=== PATIENT | male | born 1990 | race Caucasian/White ===

== ENCOUNTER 2019-04-05 17:24 | Inpatient (IN) | payer OTHER ==
[~2019-04-05] VITALS: Ht 177.8 cm; Wt 81.7 kg
--- NOTE | ~2019-04-05 | EKG ---
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
--- NOTE | ~2019-04-05 | EKG ---
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.[place] : 1990 Requested By: AZUL MILLER Order Number: [id number] Reading MD: Umair Remy MD Measurements Intervals [place] Rate: 145 P: 85 NH: 137 QRS: 80 QRSD: 93 T: 13 QT: 273 QTc: 424 Interpretive Statements Sinus tachycardia Multiple ventricular premature complexes Aberrant complex Probable left atrial enlargement Baseline wander in lead(s) II,III,aVF,V1,V3,V4 Compared to ECG 04/05/2019 18:44:40 Ventricular premature complex(es) now present Aberrant conduction of supraventricular beat(s) now present Sinus rhythm no longer present Electronically Signed On 04-08-2019 9:33:54 PDT by Umair Remy MD CM:EKGRPT:ELECTROCARDIOGRAM REPORT [id number] AZUL NICE DRAFT REPORT AZUL MILLER
[2019-04-05 17:25] VITALS: BP 134/83
[2019-04-05] MEDS ORDERED: ZANTAC 150150 MG PO (17:28)
[2019-04-05] MEDS ORDERED: AMBIEN10 M1 PO (17:28)
[2019-04-05 17:50] LABS: BILIRUBIN NEGATIVE (NEGATIVE); BLOOD NEGATIVE (NEGATIVE); CLARITY CLEAR (CLEAR); COLOR YELLOW (YELLOW); GLUCOSE NEGATIVE (NEGATIVE); KETONE NEGATIVE (NEGATIVE); LEUKO ESTERASE TRACE (NEGATIVE); NITRITE NEGATIVE (NEGATIVE); UROBILINOGEN 0.2 E.U./dl (0.2-1.0)
[2019-04-05 18:02] LABS: RBC 0-2 rbc/hpf (0-2)
[2019-04-05 18:03] LABS: BACTERIA TRACE; EPITHELIAL CELLS 0-2
[2019-04-05 18:08] LABS: URINE AMPHETAMINES < 1000 (1000ng/ml); URINE BARBITURATES < 200 (200ng/ml); URINE BENZODIAZEPINES > 200 (200ng/ml); URINE CANNABINOIDS (THC) > 50 (50ng/ml); URINE COCAINE < 300 (300ng/ml); URINE METHADONE < 300 (300ng/ml); URINE OPIATES < 300 (300ng/ml)
[2019-04-05 18:09] LABS: URINE PHENCYCLIDINE < 25 (25ng/ml)
[2019-04-05 18:49] LABS: BASO # 0.1 10*3/uL (0.0-0.1); BASO % 0.4 % (0.0-1.0); EOS # 0.2 10*3/uL (0.0-0.4); EOS % 1.8 % (1.0-4.0); HEMATOCRIT 48.4 % (42.0-52.0); HEMOGLOBIN 15.9 g/dl (14.0-18.0); LYMPH # 2.9 10*3/uL (1.3-4.4); LYMPH % 21.9 % (27.0-41.0); MEAN CELL VOLUME 91.7 fl (80.0-94.0); MEAN CORPUSCULAR HGB 30.1 pg (27.0-31.0); MEAN CORPUSCULAR HGB CONC 32.9 g/dl (33.0-37.0); MEAN PLATELET VOLUME 10.7 fl (9.6-12.3); MONO # 0.8 10*3/uL (0.1-1.0); MONO % 5.9 % (3.0-9.0); NEUT # 9.3 10*3/uL (2.3-7.9); NEUT % 69.7 % (47.0-73.0); PLATELET COUNT AUTOMATED 278 10*3/uL (130-400); RED BLOOD COUNT 5.28 10*6/uL (4.50-5.90); RED CELL DISTRI WIDTH 13.3 % (0-14.5); WHITE BLOOD COUNT 13.3 10*3/uL (4.8-10.8)
[2019-04-05 19:12] LABS: ALBUMIN 4.5 gm/dl (3.1-4.5); ALKALINE PHOSPHATASE 87 U/L (45-117); BUN 10 mg/dl (7-24); CHLORIDE 109 mmol/L (98-107); POTASSIUM 3.8 mmol/L (3.5-5.1); SGOT/AST 11 IU/L (3-35); SGPT/ALT 22 U/L (12-78); SODIUM 142 mmol/L (136-145); TOTAL PROTEIN 8.2 gm/dL (6.4-8.2)
[2019-04-05 19:50] VITALS: BP 130/66; BP 130/78
--- NOTE | 2019-04-05 19:50 | NUR ---
Time: 1947 A year old admitted to 5E under services of REENA MAYA DO. Pt. arrived via bed from ER. Chief complaint: SUBSTANCE ABUSE. PATIENT ORIENTED TO THE FLOOR 5E. PATIENT ALERT AND ORIENTED X3 ADVANCE DIRECTIVE, BELONGINGS CHECKLIST, AND HEALTHY LIFESTYLES FORMS REVIEWED AND COMPLETED. CALL LIGHT SYSTEM DEMONSTRATED. PATIENT PLACED ON MONITOR. SHANEL LUNA
--- NOTE | 2019-04-05 20:19 | NUR ---
DR. GILL NOTIFIED THAT PATIENT IS ON THE FLOOR AND MED REC IS UP-TO-DATE.
[2019-04-06] VITALS: BP 114/62
--- NOTE | 2019-04-06 04:56 | NUR ---
PATIENT GIVEN BENTYL, VISTARIL, IBUPROFEN, ZOFRAN, AND ROBAXIN PER PT REQUEST FOR ANXIETY, LEG CRAMPS AND ABDOMINAL CRAMPS.
[2019-04-06 08:00] VITALS: BP 110/76
--- NOTE | 2019-04-06 10:36 | NUR ---
PATIENT MEETS [facility]. PATIENT WANTS TO FOLLOW UP WITH [facility] FOR [facility]IDENT[facility]REAT[facility]. [facility] STA[facility] WILL SEND REFERRAL OFF TO FACILITY AND FOLLOW BACK UP WITH PATIENT. [facility] STAFF WILL SET TRANSPORATION THROUGH PATIENT'S INSURANCE IF NEEDED. DOTTIE BANEGAS B.A. INTAKE COORDIANTOR
[2019-04-06 12:00] VITALS: BP 120/71
[2019-04-06 16:00] VITALS: BP 112/76
[2019-04-06 20:00] VITALS: BP 128/72
[2019-04-07] VITALS: BP 104/54
[2019-04-07 08:00] VITALS: BP 111/78
[2019-04-07 12:00] VITALS: BP 109/62
[2019-04-07 16:00] VITALS: BP 136/89
--- NOTE | 2019-04-07 17:07 | NUR ---
NOTIFIED DR. MILLER OF PT'S PULSE.
[2019-04-07 20:00] VITALS: BP 111/58
--- NOTE | 2019-04-07 22:13 | NUR ---
PATIENT REPORTS ANXIETY TO THIS RN D/T NOT BEING ABLE TO SLEEP. PATIENT SHOWS NO SIGNS OR SYMPTOMS OF DISTRESS. RESPIRATIONS EASY NONLABORED. VOICES NO FURTHER CONCERNS. PRN VISTARIL GIVEN AT THIS TIME. WILL REASSESS.
[2019-04-08] VITALS: BP 107/67
--- NOTE | 2019-04-08 | NUR ---
NOTIFIED DR. PATEL THAT PATIENT REFUSED 0000 VITALS
--- NOTE | 2019-04-08 07:30 | NUR ---
TOOK OVER CARE OF PT AT THIS TIME. PT SITTING UP IN BED, ALERT ORIENTED AND PLEASANT MOOD WITH NO COMPLAINTS OTHER THAN SOME ANXIETY. SCHEDULED ATIVAN GIVEN AND PRN MEDICATIONS EXPLAINED TO PATIENT. ALL OTHER SCHEDULED MEDS GIVEN WELL. ASSESSMENT COMPLETE WITH NO FURTHER S/S OF DISTRESS. RESPIRATIONS EASY AND UNLABORED. CALL LIGHT IN REACH.
[2019-04-08 08:00] VITALS: BP 121/65
[2019-04-08 12:00] VITALS: BP 121/67
--- NOTE | 2019-04-08 14:49 | NUR ---
PT UP WALKING THROUGHOUT HALLS WITH NO S/S OF DISTRESS OR WITHDRAWAL SYMPTOMS. PT PLEASANT AND DENIES NEEDING ANYTHING AT THIS TIME. WILL CONTINUE TO MONITOR.
[2019-04-08 16:00] VITALS: BP 124/68
--- NOTE | 2019-04-08 16:45 | NUR ---
PT ASKED ABOUT CALLING [facility] TO SEE IF HE COULD LEAVE FACILITY A DAY EARLY TO GO TO [facility]. PT ADVISED THAT [facility] IS NOT IN ON SUNDAYS AND THAT THEY WILL FOLLOW UP WITH HIM TOMORROW PER THEIR PLAN. PT AGREEABLE.
[2019-04-08 20:00] VITALS: BP 131/67
--- NOTE | 2019-04-08 20:57 | NUR ---
PRN ATIVAN GIVEN FOR PT COMPLAINTS OF ANXIETY. CALL LIGHT WITHIN REACH, WILL SAL
--- NOTE | 2019-04-08 22:55 | NUR ---
PRN MAALOX GIVEN FOR PT COMPLAINTS OF INDIGESTION. EARLIER ATIVAN EFFECTIVE
--- NOTE | 2019-04-08 23:00 | NUR ---
PRN MAALOX APPEARS EFFECTIVE, PT SLEEPING
[2019-04-09 08:00] VITALS: BP 113/53
--- NOTE | 2019-04-09 09:05 | NUR ---
PT REQUESTED AND GIVEN ATIVAN FOR C/O ANXIETY WILL MONITOR
--- NOTE | 2019-04-09 09:49 | NUR ---
PATIENT HAS BEEN ACCEPTED TO [facility]. MD STAFF IS SETTING UP TRANSPORTION THROUGH HIS INSURANCE. MD STAFF IS WAITING FOR INSURANCE COMPANY TO CALL BACK WITH SCALEMAKER TIME. DOTTIE BANEGAS B.A. DINKING MACHINE OPERATOR
--- NOTE | 2019-04-09 11:14 | NUR ---
[facility] SPOKE WITH PATIENT'S INSURANCE. THEY REPORTED THAT THEY WILL PICK PATIENT UP BETWEEN 12:30PM AND 1:30PM. [facility]FF MADE PATIENT AWARE. PATIENT AGREES AND UNDERSTANDS HIS AFTERCARE PLAN. DOTTIE BANEGAS B.A. FURNACE AND WASH EQUIPMENT OPERATOR
--- NOTE | 2019-04-09 12:01 | NUR ---
PT REQUESTED AND GIVEN ROBAXIN FOR MUSCLE ACHES AND VISTARIL FOR ANXIETY WILL MONITOR
--- NOTE | 2019-04-09 12:20 | NUR ---
Discharge instructions reviewed with patient/family. Patient receptive and verbalizes understanding. Follow-up care arranged. Written instructions given to patient/family. ALEXY VILLAGOMEZ
== END 2019-04-09 12:20 | disposition home or self-care (01) | DRG 897 ==
LOC: ED 17:24 → EDHOLD 18:53 → 5E 18:53
PROVIDERS: Emergency Medicine; Physician Assistant; ADMIT Internal Medicine
DX: F13.239 Sedative, hypnotic or anxiolytic dependence with withdrawal, unspecified (principal); F41.9 Anxiety disorder, unspecified; D72.829 Elevated white blood cell count, unspecified; F17.220 Nicotine dependence, chewing tobacco, uncomplicated; E87.8 Other disorders of electrolyte and fluid balance, not elsewhere classified; G47.00 Insomnia, unspecified; F12.10 Cannabis abuse, uncomplicated; F14.10 Cocaine abuse, uncomplicated; F15.10 Other stimulant abuse, uncomplicated; Z71.6 Tobacco abuse counseling; Z79.899 Other long term (current) drug therapy